=== PATIENT | male | born 1995 | race Caucasian/White ===

== ENCOUNTER 2024-06-04 20:41 | Emergency (ER) | payer SELFPAY ==
[~2024-06-04] VITALS: Ht 162.6 cm; Wt 61.2 kg
[2024-06-04 20:54] VITALS: BP 134/95; PULSE 111; RESP 18; TEMP 98.2; O2SAT 98
[2024-06-04 22:29] LABS: BASOPHILS # (AUTO) 0.1 K/uL (0.00-0.22); BASOPHILS % (AUTO) 0.6 % (0.0-2.0); EOSINOPHILS % (AUTO) 0.3 % (0.0-4.0); HEMOGLOBIN 14.6 g/dL (12.0-18.0); LYMPHOCYTES # (AUTO) 1.5 K/uL (2.0-11.5); LYMPHOCYTES % (AUTO) 16.9 % (20.5-51.1); MEAN CORPUSCULAR HEMOGLOBIN 29 pg (27-31); MEAN CORPUSCULAR HGB CONC 34 g/dL (33-37); MEAN CORPUSCULAR VOLUME 84.4 fL (80-94); MONOCYTES # (AUTO) 0.4 K/uL (0.8-1.0); MONOCYTES % (AUTO) 4.7 % (1.7-9.3); NEUTROPHILS # (AUTO) 6.9 K/uL (1.8-7.7); NEUTROPHILS % (AUTO) 77.5 % (42.2-75.2); PLATELET COUNT (AUTO) 117 K/uL (140-450); RED CELL DISTRIBUTION WIDTH 13.1 % (11.6-13.7); WHITE BLOOD COUNT (AUTO) 8.9 K/uL (4.8-10.8)
[2024-06-04 22:58] LABS: ANION GAP 15.9 (8-16); CALCIUM 9.7 mg/dL (8.5-10.1); CARBON DIOXIDE 29.1 mmol/L (21-32)
[2024-06-04 23:30] VITALS: BP 130/92; PULSE 108; RESP 18; TEMP 98.2
[2024-06-04 23:31] VITALS: O2SAT 99
== END 2024-06-04 23:50 | disposition home or self-care (01) ==
LOC: MED 20:41
DX: R55 Syncope and collapse (principal); R56.9 Unspecified convulsions; F14.90 Cocaine use, unspecified, uncomplicated
CPT/HCPCS: 36415; 80048; 82948; 84484; 85025; 93005; 99284